=== PATIENT | male | born 1950 | race Caucasian/White ===

== ENCOUNTER 2018-01-04 01:05 | Inpatient (IN) | payer SELFPAY ==
[~2018-01-04] VITALS: Ht 157.5 cm; Wt 64.4 kg
[2018-01-04 01:12] VITALS: Ht 157.5 cm; Wt 64.4 kg
[2018-01-04 01:43] LABS: CALCIUM 8.5 mg/dL (8.5-10.1); CARBON DIOXIDE 25.4 mmol/L (21-32); CHLORIDE SERUM 100 mmol/L (98-107); CREATININE SERUM 1.2 mg/dL (0.7-1.3); GFR1 > 60 mL/min; GLUCOSE SERUM 135 mg/dL (74-106); POTASSIUM SERUM 3.4 mmol/L (3.5-5.1); SODIUM SERUM 136 mmol/L (136-145)
[2018-01-04 01:47] LABS: ALBUMIN 3.4 g/dL (3.4-5.0); ALKALINE PHOSPHATASE 99 U/L (46-116); ALT/SGPT 14 U/L (16-63); AST/SGOT 14 U/L (15-37); BILIRUBIN TOTAL 0.96 mg/dL (0.20-1.00); HDL CHOLESTEROL 50 mg/dL (40-60); LIPASE 136 IU/L (73-393); TOTAL PROTEIN, SERUM 7.7 g/dL (6.4-8.2); TRIGLYCERIDES 61 mg/dL (<150)
[2018-01-04 01:48] LABS: CHOLESTEROL 119 mg/dL (<200); CHOLESTEROL/HDL RATIO 2.4
[2018-01-04 02:03] LABS: FREE T4 0.92 ng/dL (0.76-1.46); FREE THYROXINE INDEX 2.3 ug/dL (1.4-4.5); T4(THYROXINE) 6.5 ug/dL (4.7-13.3)
[2018-01-04 02:05] LABS: T3 TOTAL 0.88 ng/mL
[2018-01-04 02:38] LABS: BASOPHIL % 0.2 % (0-2); PLATELET COUNT 145 x10^3mcL (130-400); RED CELL DISTRIBUTION WIDTH 14.1 % (11.5-14.5)
[2018-01-04 04:16] LABS: MAGNESIUM 1.7 mg/dL (1.8-2.4); PHOSPHOROUS 2.7 mg/dL (2.5-4.9)
[2018-01-04] MEDS ORDERED: ASPIR 8181 MG PO (04:36)
[2018-01-04 04:47] LABS: UA SPECIFIC GRAVITY 1.015 (1.005-1.035); microscopic required? YES; urine erythrocyte NEGATIVE (NEGATIVE)
[2018-01-04 04:56] VITALS: BP 169/88
[2018-01-04 05:06] LABS: AMPHETAMINE QUAL UR NONE DETECTED (NEG <=1000)
[2018-01-04] MEDS ORDERED: ZES10 PO (08:32)
[2018-01-04 08:56] VITALS: BP 135/75
[2018-01-04 09:59] LABS: CALCIUM 8.6 mg/dL (8.5-10.1); CHLORIDE SERUM 101 mmol/L (98-107); GFR1 > 60 mL/min; GLUCOSE SERUM 165 mg/dL (74-106); MAGNESIUM 1.9 mg/dL (1.8-2.4); POTASSIUM SERUM 4.4 mmol/L (3.5-5.1); SODIUM SERUM 133 mmol/L (136-145)
[2018-01-04 10:16] LABS: BASOPHIL % 0.4 % (0-2); PLATELET COUNT 143 x10^3mcL (130-400); RED CELL DISTRIBUTION WIDTH 14.3 % (11.5-14.5)
[2018-01-04 13:29] VITALS: BP 135/75
[2018-01-04 13:31] VITALS: BP 132/73
[2018-01-04] MEDS ORDERED: LIPITOR10 MG PO (15:24)
[2018-01-04] MEDS ORDERED: ALDACTONE25 MG PO (15:25)
[2018-01-04] MEDS ORDERED: CARVEDILOL3.125 M1 PO (15:25)
[2018-01-04] MEDS ORDERED: LIB25 PO (15:36)
[2018-01-04 16:39] VITALS: BP 131/75
[2018-01-04 20:17] VITALS: BP 114/64
== END 2018-01-04 22:08 | disposition home or self-care (01) | DRG 205 ==
LOC: ED 01:05 → DU 03:40
PROVIDERS: Family Medicine; Specialist
DX: M94.0 Chondrocostal junction syndrome [Tietze] (principal); N17.0 Acute kidney failure with tubular necrosis; I50.43 Acute on chronic combined systolic (congestive) and diastolic (congestive) heart failure; F10.239 Alcohol dependence with withdrawal, unspecified; I11.0 Hypertensive heart disease with heart failure; I25.10 Atherosclerotic heart disease of native coronary artery without angina pectoris; E87.6 Hypokalemia; Y90.9 Presence of alcohol in blood, level not specified; I34.0 Nonrheumatic mitral (valve) insufficiency; E83.42 Hypomagnesemia; D64.9 Anemia, unspecified; Z72.89 Other problems related to lifestyle; Z82.49 Family history of ischemic heart disease and other diseases of the circulatory system; Z86.74 Personal history of sudden cardiac arrest
CPT/HCPCS: 83880; 84439; G0480; J1885; J2270; J2405; J3475; J7030; Q0092

== ENCOUNTER 2020-05-28 16:09 | Emergency (ER) | payer OTHER, SELFPAY ==
[~2020-05-28] VITALS: Ht 157.5 cm; Wt 63.5 kg
[~2020-05-28 16:09] MED LIST: ALDACTONE25 MG PO; ASPIR 8181 MG PO; CARVEDILOL3.125 M1 PO; LIB25 PO; LIPITOR10 MG PO; ZES10 PO
[2020-05-28 16:21] VITALS: Ht 157.5 cm; Wt 63.5 kg
[2020-05-28 17:41] LABS: BASOPHIL % 0.4 % (0-2); PLATELET COUNT 182 x10^3mcL (130-400)
[2020-05-28 17:42] LABS: RED CELL DISTRIBUTION WIDTH 15.1 % (11.5-14.5)
[2020-05-28 17:48] LABS: CALCIUM 9.1 mg/dL (8.5-10.1); CARBON DIOXIDE 23.7 mmol/L (21-32); CHLORIDE SERUM 101 mmol/L (98-107); CREATININE SERUM 0.9 mg/dL (0.7-1.3); GLUCOSE SERUM 108 mg/dL (74-106); POTASSIUM SERUM 3.6 mmol/L (3.5-5.1); SODIUM SERUM 137 mmol/L (136-145)
[2020-05-28 17:52] LABS: ALBUMIN 3.9 g/dL (3.4-5.0); ALKALINE PHOSPHATASE 114 U/L (46-116); ALT/SGPT 20 U/L (16-63); AST/SGOT 25 U/L (15-37); BILIRUBIN TOTAL 1.1 mg/dL (0.20-1.00); LACTIC DEHYDROGENASE (LDH) 225 U/L (100-190); TOTAL PROTEIN, SERUM 8.4 g/dL (6.4-8.2)
[2020-05-28 19:28] VITALS: BP 177/82
== END 2020-05-28 19:28 | disposition home or self-care (01) ==
LOC: ED 16:09
PROVIDERS: Emergency Medicine
DX: R06.00 Dyspnea, unspecified (principal); R53.1 Weakness; B34.9 Viral infection, unspecified; I10 Essential (primary) hypertension; Z20.828 Contact with and (suspected) exposure to other viral communicable diseases
CPT/HCPCS: 36600; 83880; 87804; G0480; Q0092; U0003-CS